=== PATIENT | male | born 1945 | race Caucasian/White ===

== ENCOUNTER → 2016-04-20 07:12 | Day surgery (SDC) | payer MEDICARE ==
[~2016-04-20 07:12] MED LIST: Acetaminophen TAB* 325 MG PO PRN; Buffered Lidocaine 1% SYR 3ML* 3 ML/SYR SYRINGE INTRADERM ONE; Buffered Lidocaine 1% SYR 3ML* 3 ML/SYR SYRINGE ONE; Cyclopentolate 1% OPTH.SOL* 2 ML BTL ONE; Flurbiprofen 0.03% OPTH.SOL* 2.5 ML BTL ONE; Lidocaine 1% MPF* 2 ML VIAL ONE; Lidocaine 2% EPI 1:200000 MPF* 20 ML VIAL ONE; Midazolam* 1 MG/ML 2 ML VIAL (2 MG) ONE; Neomycin/Polymy/Dex OPTH.SUSP* MAXITROL 0.1% 5 ML ONE; Phenylephrine 2.5% OPTH.SOL* 2 ML BTL ONE; Povidone Iodine 5% OPTH* 30 ML BTL ONE; Proparacaine 0.5% OPHTH.SOL* 15 ML BTL ONE; acetaZOLAMIDE TAB* 250 MG ONE
[2016-04-20 09:35] VITALS: BP 101/60
--- NOTE | 2016-04-20 23:13 | OP ---
DATE OF OPERATION: 04/20/16 - [facility] DATE OF : 49 SURGEON: Wade Iraheta MD PREOPERATIVE DIAGNOSIS: Cataract, right eye. POSTOPERATIVE DIAGNOSIS: Cataract, right eye. OPERATIVE PROCEDURE: Phacoemulsification, right eye with IOL. DESCRIPTION OF PROCEDURE: The patient was brought to the operating room after being given 1/2% Alcaine with epinephrine drops in the preoperative area. The eye was prepped and draped in the usual sterile fashion. Sterile drape and eyelid speculum were placed. Again, topical 1/2% Alcaine with epinephrine was given. A paracentesis incision was made at the 9 o'clock position with the No.75 blade. Clear cornea incision 2.2 x 2.2-mm was created at the 12 o'clock position starting at the anterior limbus using the 2.2-mm keratome. The anterior chamber was irrigated with 0.4 mL of 1% non-preservative intracameral lidocaine and filled with DisCoVisc. A capsulorrhexis was completed using the cystotome and the Utrata forceps. Hydrodissection was performed with balanced salt solution. The lens nucleus was removed with the Phacoemulsification handpiece without incident. Cortex was removed with the irrigation-aspiration handpiece. The capsular bag was re-inflated using DisCoVisc and an SN60WF 20.5 implant was inserted with the shooter. The irrigation-aspiration handpiece was used to remove all residual DisCoVisc. The eye was refilled with balanced salt solution and the wound checked and found to be watertight. Topical Maxitrol drops were given. [id number]/[facility] #: [id number] [facility]
== END | disposition home or self-care (01) ==
LOC: OREAST 07:12
PROVIDERS: ATTEND Specialist
DX: H25.811 Combined forms of age-related cataract, right eye (principal); H04.123 Dry eye syndrome of bilateral lacrimal glands; I10 Essential (primary) hypertension
CPT/HCPCS: A9270-GY; J2250; V2632

== ENCOUNTER → 2016-04-27 06:43 | Day surgery (SDC) | payer MEDICARE ==
[2016-04-27 08:36] VITALS: BP 125/65
--- NOTE | 2016-04-27 22:00 | OP ---
DATE OF OPERATION: 04/27/16 - [facility] DATE OF : 49 SURGEON: Wade Iraheta M.D. PREOPERATIVE DIAGNOSIS: Cataract left eye. POSTOPERATIVE DIAGNOSIS: Cataract left eye. OPERATIVE PROCEDURE: Phacoemulsification left eye with IOL. DESCRIPTION OF PROCEDURE: The patient was brought to the operating room after being given 1/2% Alcaine with epinephrine drops in the preoperative area. The eye was prepped and draped in the usual sterile fashion. Sterile drape and eyelid speculum were placed. Again, topical 1/2% Alcaine with epinephrine was given. A paracentesis incision was made at the 3 o'clock position with the No.75 blade. Clear cornea incision 2.2 x 2.2-mm was created at the 6 o'clock position starting at the anterior limbus using the 2.2-mm keratome. The anterior chamber was irrigated with 0.4 mL of 1% non-preservative intracameral lidocaine and filled with DisCoVisc. A capsulorrhexis was completed using the cystotome and the Utrata forceps. Hydrodissection was performed with balanced salt solution. The lens nucleus was removed with the Phacoemulsification handpiece without incident. Cortex was removed with the irrigation-aspiration handpiece. The capsular bag was re-inflated using DisCoVisc and an [id number] 21 implant was inserted with the shooter. The irrigation-aspiration handpiece was used to remove all residual DisCoVisc. The eye was refilled with balanced salt solution and the wound checked and found to be watertight. Topical Maxitrol drops were given. [id number]/[facility] #: [id number] [place]
== END | disposition home or self-care (01) ==
LOC: OREAST 06:43
PROVIDERS: ATTEND Specialist
DX: H25.812 Combined forms of age-related cataract, left eye (principal); H04.123 Dry eye syndrome of bilateral lacrimal glands; Z87.891 Personal history of nicotine dependence; I10 Essential (primary) hypertension
CPT/HCPCS: A9270-GY; J2250; V2632

== ENCOUNTER 2019-03-16 10:26 | Emergency (ER) | payer MEDICARE ==
--- OUTSIDE RECORDS SUMMARY | 2019-03-16 10:31 | XMS REPORT | Continuity of Care Document ---
:1945 External Reference #:[id number] Author Name Jose Antonio Younger PA Address [address] [place] [address] Care Team Providers Name Role Phone Abrahan Quigley MD - Care Team Information Safety Companion [phone] Cardiovascular Disease Problems Active Problems Provider Date Type 2 diabetes mellitus Jose Antonio Younger PA Onset: 12/03/2018 Essential hypertension Jose Antonio Younger PA Onset: 12/03/2018 Hypothyroidism Jose Antonio Younger PA Onset: 12/03/2018 Mixed hyperlipidemia Jade Bernabe MD Onset: 04/25/2013 Benign prostatic hypertrophy with outflow Jade Bernabe MD Onset: 2013 obstruction Obstructive sleep apnea syndrome Jose Antonio Younger PA Onset: 04/18/2018 Note: -- per Pulm 03/2018 Gastroesophageal reflux disease Jose Antonio Younger PA Onset: 05/11/2015 Diverticular disease of colon Jose Antonio Younger PA Onset: 11/30/2015 Ultrasound scan normal Jose Antonio Younger PA Onset: 04/05/2016 Note: AAA -- 03/2016 Hepatitis C screening Jose Antonio Younger PA Onset: 04/26/2016 Note: Neg -- 03/2016 Bone densimetry normal Jose Antonio Younger PA Onset: 12/12/2017 Note: 11/2017 ECG: ectopic beats - premature atrial contraction Jose Antonio Younger PA Onset: 01/2018 Note: 24hr Holter w/ frequent PACs -- 02/2018 Spinal stenosis in cervical region Jose Antonio Younger PA Onset: 11/21/2018 Note: C3 thru C7 -- per MRI 10/2018 Social History Type Date Description Comments Sex Unknown ETOH Use Occasionally consumes alcohol Tobacco Use Start: Unknown End: Patient is a former smoker remote 15 pack year. Unknown ~20-35yo. Smoking Status Reviewed: 02/28/19 Patient is a former smoker remote 15 pack year. ~20-35yo. Sun Exposure moderate amount of sun exposure Sun Exposure Does not use sunscreen Allergies, Adverse Reactions, Alerts Active Allergies Reaction Severity Comments Date Ceclor 11/15/2004 Medications Active Medications SIG Qnty Indications Ordering Date Provider Metformin HCL ER take 2 tablets 180tabs E11.9 [facility] 12/13/2018 500mg each morning MD Jayro Tablets ER 24HR Levothyroxine Sodium 1 by mouth every 90tabs E03.9 [facility] 2018 day on empty MD Jayro 50mcg Tablets stomach before bedtime Shingrix 1 injection as 1units Z00.01 [facility] 11/29/2018 50mcg/0.5ML directed MD Jayro Suspension Rec Spironolactone/Hydroc 1 by mouth every 90tabs R60.9 [facility] 09/27 hlorothiazide day for edema/htn MD Jayro 25-25mg Tablets I10 Fluticasone Propionate 1 sprays in each 48gm J30.9 [facility] 2018 nostril twice MD Jayro 50mcg/Act Suspension daily Omeprazole Take 1 Capsule 90caps K21.9 [facility] 11/29/[address] Daily MD Jayro Iron one by mouth day 30tabs [facility] 08/23/2016 325(65Fe) mg Tablets MD Jayro Simvastatin take 1 tablet 90tabs E78.2 [facility] 11/10/2014 20mg Tablets daily MD Jayro Tamsulosin HCL Take 1 Capsule 90caps N40.1 [facility] 12/16/2010 0.4mg Capsules Daily MD Jayro Multivitamins 1 PO qd 30tabs Azeem Parsons, 11/15/2004 Tablets Aspirin Enteric Coated 1 PO qd E78.2 Azeem Parsons, 11/15/2004 81mg MD Tablets History Medications Cheratussin ac 5-10 milliliters 300ml J15.9 [facility], 02/20/2019 - four times a day Kimberlee Dial MD 02/23/2019 100-10mg/5ML Solution as needed cough Azithromycin 1 by mouth every 3tabs J15.9 [facility], 02/20/2019 - 500mg day Kimberlee Dial MD 02/23/2019 Tablets Synjardy XR Hold 30tabs E11.9 [facility], 12/03/2018 - 10-1000mg Kimberlee Dial MD 12/20/2018 Tablets ER 24HR Naproxen 1 by mouth twice a 60tabs M54.12 [facility] 11/29/2018 - 500mg Tablets day as needed Kimberlee Dial MD 12/20/2018 Gabapentin take three po at 90caps M54.12 [facility] 09/27/2018 - 100mg Capsules bedtime Kimberlee Dial MD 12/20/2018 Oxycodone HCL 1 tab as needed up 45caps M54.12 [facility] 09/27/2018 - 5mg to 2 per day for Kimberlee Dial MD 12/20/2018 Capsules severe pain Cyclobenzaprine HCL 1/2 to 1 tab by 45tabs M54.12 [facility] 09/13/2018 - 10mg mouth nightly Kimberlee Dial MD 11/29/2018 Tablets needed muscle spasm Prednisone 2 by mouth every 10tabs M54.2 [facility] 09/13/2018 - 20mg Tablets morning Kimberlee Dial MD 09/23/2018 Naproxen 1 by mouth twice a 60tabs M54.12 [facility] 09/13/2018 - 500mg Tablets day for 1-2weeks Kimberlee Dial MD 11/29/2018 and then as needed [start after finish prednisone; no other NSAIDs OTC] Medications Administered in Office Medication SIG Qnty Indications Ordering Provider Date Depo Medrol 80 MG Jose Antonio Younger PA 10/26/2015 Injection Depo Medrol 40 MG Azeem Parsons MD 05/03/2002 Injection Immunizations CPT Code Status Date Vaccine Lot # [id number] Given 11/29/2018 Pneumococcal 23 Immunization Adult Or [id number] Immunosuppressed Patient 91363 Given 11/29/2018 Influenza Vac, Quadrivalent, Split, 0.5mL Dosage, [id number] Im Use 26095 Given 12/14/2017 Influenza Vac, Quadrivalent, Split, 0.5mL Dosage, [id number] Im Use 72344 Given 05/29/2017 Zoster (Zostavax) 00164 Given 11/29/2016 Tdap (Adacel) Ages 7 And Above Only [id number] 96033 Given 11/29/2016 Influenza Vac, Quadrivalent, Split, 0.5mL Dosage, [id number] Im Use 65487 Given 11/30/2015 Influenza Vac, Quadrivalent, Split, 0.5mL Dosage, [id number] Im Use 46904 Given 11/30/2015 Prevnar 13 Pneumococal Conjugate Vaccine [id number] Q2038 Given 01/05/2015 Fluzone Trivalent Immunization [id number] 23397 Given 01/05/2015 Influenza Vac, Quadrivalent, Split, 0.5mL Dosage, [id number] Im Use Q2038 Given 01/06/2014 Fluzone Trivalent Immunization [id number] 18313 Given 04/25/2013 Pneumococcal 23 Immunization Adult Or Immunosuppressed Patient 42921 Given 04/25/2013 Pneumococcal 23 Immunization Adult Or [id number] Immunosuppressed Patient Q2038 Given 01/15/2013 Fluzone Trivalent Immunization [id number] Q2038 Given 01/12/2012 Fluzone Trivalent Immunization [id number] Q2038 Given 01/20/2011 Fluzone Trivalent Immunization [id number] 17513 Given 01/04/2010 Afluria Or Fluvirin Flu Vac Intramuscular [id number] 96562 Given 04/27/2009 Influenza Virus Vaccine Pandemic Formulation - [id number] 49959 Given 04/27/2009 Administration Swine Flu Vaccine [id number] 21845 Given 02/19/2009 Afluria Or Fluvirin Flu Vac Intramuscular [id number] 28959 Given 03/10/2008 Afluria Or Fluvirin Flu Vac Intramuscular [id number] 11941 Given 01/09/2007 Afluria Or Fluvirin Flu Vac Intramuscular 24656 Given 01/09/2007 Afluria Or Fluvirin Flu Vac Intramuscular [id number] 52733 Given 12/16/2005 Afluria Or Fluvirin Flu Vac Intramuscular [id number] 36946 Given 01/12/2005 Afluria Or Fluvirin Flu Vac Intramuscular [id number] 61719 Given 12/24/2003 Afluria Or Fluvirin Flu Vac Intramuscular 08213 Given 12/25/2002 Afluria Or Fluvirin Flu Vac Intramuscular 61379 Given 01/22/2001 Afluria Or Fluvirin Flu Vac Intramuscular 08695 Given 02/07/2000 Influenza Virus Vaccine, Whole Virus, Intramuscular Or Jet Inj. 62565 Given Unknown Zoster (Zostavax) Vital Signs Date Vital Result Comment 02/28/2019 8:02am Weight 246.12 lb Heart Rate 87 /min BP Systolic 134 mmHg BP Diastolic 78 mmHg Height 71 inches 5'11" BMI (Body Mass Index) 34.3 kg/m2 02/20/2019 12:52pm Body Temperature 97.8 F Weight 247.00 lb Heart Rate 89 /min BP Systolic 129 mmHg BP Diastolic 70 mmHg Height 71 inches 5'11" BMI (Body Mass Index) 34.4 kg/m2 Results Test Acquired Date Facility Test Result H/L Range Note Comprehensive Met 02/21/2019 [facility] Sodium 142 mmol/L 135-146 1 [facility] Potassium 4.7 mmol/L 3.5-5.2 Chloride# 101 mmol/L 97-110 2 Carbon Dioxide 29 mmol/L 24-34 Calcium 9.3 mg/dL 8.5-10.5 3 Glucose 131 mg/dL High 70-105 BUN 17 mg/dL 6-26 Creatinine 1.0 mg/dL 0.5-1.4 Total Protein 6.3 g/dL 6.0-8.0 Albumin 4.2 g/dL 3.6-4.9 Globulin 2.1 g/dL 2.0-3.5 A/G Ratio 2.0 Ratio 1.0-2.2 Total Bilirubin 0.5 mg/dL 0.1-1.3 Alkaline Phosphatase 71 U/L 24-140 Alt 18 U/L 3-42 Ast 20 U/L 8-42 Anion Gap 12 mmol/L 5-15 4 Female Egfr 59 Low >60 5 Male Egfr 79 >60 6 Laboratory test finding 02/21/2019 [facility] Magnesium 1.8 mg/dL 1.5-2.7 Hemoglobin A1c 02/21/2019 [facility] Hemoglobin A1c 6.4 % High 4.1-5.9 Estimated Average Glucose Calc 137 mg/dL 71-140 Laboratory test 02/20/2019 Done In Doctors Office 1 Rapid Flu Test NEG finding (In House) Laboratory test 12/13/2018 [facility] SEE NOTE 7 finding [facility] Comprehensive Met 11/29/2018 [facility] Sodium 139 mmol/L 135-146 8 [facility] Potassium 4.5 mmol/L 3.5-5.2 Chloride# 101 mmol/L 97-110 9 Carbon Dioxide 30 mmol/L 24-34 Calcium 9.4 mg/dL 8.5-10.5 10 Glucose 132 mg/dL High 70-105 BUN 13 mg/dL 6-26 Creatinine 1.0 mg/dL 0.5-1.4 Total Protein 6.1 g/dL 6.0-8.0 Albumin 4.0 g/dL 3.6-4.9 Globulin 2.1 g/dL 2.0-3.5 A/G Ratio 1.9 Ratio 1.0-2.2 Total Bilirubin 0.5 mg/dL 0.1-1.3 Alkaline Phosphatase 64 U/L 24-140 Alt 23 U/L 3-42 Ast 26 U/L 8-42 Anion Gap 8 mmol/L 5-15 11 Female Egfr 54 Low >60 12 Male Egfr 72 >60 13 CBC with Auto Diff-[facility] 11/29/2018 [facility] WBC 7.0 K/uL 4.1-11.0 RBC 4.63 M/uL 4.60-6.10 Hemoglobin 15.5 gm/dL 13.5-18.0 Hematocrit 44.9 % 41.0-53.0 MCV 97.0 fL 80.0-97.0 MCH 33.5 pg High 27.0-32.0 MCHC 34.5 g/dL 32.0-36.0 RDW 13.3 % 11.5-14.5 PLT Count 207 K/ul 140-400 MPV 8.2 FL 7.1-10.7 Neutrophil 66.3 % 35.0-75.0 Lymphocyte 18.5 % 16.0-52.0 Monocyte 9.7 % 2.0-10.0 Eosinophil 4.7 % 0.0-5.0 Basophil 0.8 % 0.0-4.0 Abs Neutrophils 4.7 K/uL 2.1-8.0 Abs Lymphocytes 1.3 K/uL 0.8-5.5 Abs Monocytes 0.7 K/uL 0.1-1.0 Abs Eosinophils 0.3 K/uL 0.0-0.5 Abs Basophils 0.1 K/uL 0.0-0.3 Hemoglobin A1c 11/29/2018 [facility] Hemoglobin A1c 7.4 % High 4.1-5.9 Estimated Average Glucose Calc 166 mg/dL High 71-140 Lipid 11/29/2018 [facility] Cholesterol 133 mg/dL 50-199 Triglycerides 255 mg/dL High 30-200 HDL 31 mg/dL 29-71 14 Chol/ HDL Ratio 4.4 ratio 4.0-6.7 VLDL 51 mg/dL High 2-29 LDL (Calc) 52 mg/dL 20-99 15 Laboratory test finding 11/29/2018 [facility] Magnesium 1.9 mg/dL 1.5-2.7 PSA 0.540 ng/mL 0.000-4.000 16 TSH 3.48 uIU/mL 0.35-4.94 1 Updated reference range on new analyzer 2 Updated reference range on new analyzer 3 Updated reference range 07-18-2018 4 Updated Reference Range 5 Concerning GFR Guidelines for Americans: Normal function or mild renal disease, if clinically at risk: >/= 60 mL/min Moderately decreased: 30-59 Severely decreased: 15-29 Renal failure: <15 There is reduced accuracy above 60ml/min/1.73 m squared, but the numeric value may be clinically useful in the near 60 range 6 Concerning GFR Guidelines: Normal function or mild renal disease, if clinically at risk: >/= 60 mL/min Moderately decreased: 30-59 Severely decreased: 15-29 Renal failure: <15 There is reduced accuracy above 60ml/min/1.73 m squared, but the numeric value may be clinically useful in the near 60 range Glomerular Filtration Rate (GFR) is estimated based on the CKD-EPI equation, which assumes a steady state for creatinine as recommended by the National Kidney Disease Education Program in conjunction with the National Institutes of Health and the National Kidney Foundation. Clinical conditions in which it may be necessary to measure GFR by using clearance methods include extremes of age and body size, severe malnutrition or obesity, diseases of skeletal muscle, paraplegia or quadriplegia, vegetarian diet, rapidly changing kidney function, and calculation of the dose of potentially toxic drugs that are excreted by the kidneys. 7 Laboratory [place] [address] Surgical Pathology Report Specimen(s) Received A: Left arm lesion Clinical Diagnosis and History ICD 10 - D48.5 Left arm lesion - punch. Diagnosis SKIN, LEFT ARM LESION, PUNCH BIOPSY - INFLAMED HYPERTROPHIC SEBORRHEIC KERATOSIS. Gross Description Specimen received in formalin labeled "left arm lesion" is a 0.8 cm circular granular, slightly nodular skin punch excised to a maximum depth of 0.8 cm. The specimen is inked, bisected transversely and is entirely submitted for microscopic examination. (1 block) juliana f/[facility] Technical component processed at [facility], Histopathology, [address] [place] [address], [facility]. Diagnosis and reporting performed at [facility], [address] [place] [address]. Reported: 12/18/2018 19:04 Electronically Signed Out By Abdi Reilly MD [facility] This report may include immunohistochemical or in-situ hybridization results. Testing was developed and the performance characteristics determined by [facility] [employer] as required by CLIA '88. The FDA has determined that approval for specific use is not necessary for clinical use. The quality of all stains including positive and negative controls for all immunohistochemical and/or special stains were reviewed and considered appropriate ICD9 Codes L82.0 CPT4 codes A: 15937R Unless otherwise specified, testing performed by [facility], [place] [address] 8 Updated reference range on new analyzer 9 Updated reference range on new analyzer 10 Updated reference range 07-18-2018 11 Updated Reference Range 12 Concerning GFR Guidelines for Americans: Normal function or mild renal disease, if clinically at risk: >/= 60 mL/min Moderately decreased: 30-59 Severely decreased: 15-29 Renal failure: <15 There is reduced accuracy above 60ml/min/1.73 m squared, but the numeric value may be clinically useful in the near 60 range 13 Concerning GFR Guidelines: Normal function or mild renal disease, if clinically at risk: >/= 60 mL/min Moderately decreased: 30-59 Severely decreased: 15-29 Renal failure: <15 There is reduced accuracy above 60ml/min/1.73 m squared, but the numeric value may be clinically useful in the near 60 range Glomerular Filtration Rate (GFR) is estimated based on the CKD-EPI equation, which assumes a steady state for creatinine as recommended by the National Kidney Disease Education Program in conjunction with the National Institutes of Health and the National Kidney Foundation. Clinical conditions in which it may be necessary to measure GFR by using clearance methods include extremes of age and body size, severe malnutrition or obesity, diseases of skeletal muscle, paraplegia or quadriplegia, vegetarian diet, rapidly changing kidney function, and calculation of the dose of potentially toxic drugs that are excreted by the kidneys. 14 Per NCEP ATP III Guidelines: Results lower than 40 mg/dL are suggestive of increased risk for coronary artery disease. Results > or = to 60 mg/dL are considered a negative risk factor. 15 Per NCEP ATP III Guidelines: Normal Population <130 Patients with medical conditions: CHD/DM Optimal: <100 Borderline high: 130-159 High: 160-189 Very high: >189 16 Beginning 05/15/06 PSA values assayed at [facility] uses chemiluminescence methodology manufactured by [employer] for use on the DXI analyzer. Values obtained with different assay methods or kits can not be used interchangeably. Serum PSA measurement is not an absolute test for malignancy. The PSA value should be used in conjunction with information available from clinical evaluation and other diagnostic procedures. Procedures Date Code Description Status 12/13/2018 53536 Excise Benign Lesion .6-1CM Trunk/Arm/Leg Completed 12/13/2018 99443 Remove Skin Tags Up To 15 Completed 12/12/2017 [id number] Bone Mineral Density Test Completed 11/20/2012 [id number] Colonoscopy Completed 03/20/2003 [id number] Colonoscopy Completed Medical Devices Description No Information Available Encounters Type Date Location Provider Dx Diagnosis Office Visit 02/20/2019 1:00p Jose Antonio Santa PA J15.9 Unspecified bacterial pneumonia E66.9 Obesity, unspecified Z68.34 Body mass index (BMI) 34.0-34.9, adult J02.9 Acute pharyngitis, unspecified Office Visit 12/24/2018 1:00p Jose Antonio Santa PA N43.3 Hydrocele, unspecified E66.9 Obesity, unspecified Z68.34 Body mass index (BMI) 34.0-34.9, adult Office Visit 12/20/2018 8:00a Jose Antonio Santa PA E11.9 Type 2 diabetes mellitus without complications I10 Essential (primary) hypertension E78.2 Mixed hyperlipidemia N40.1 Benign prostatic hyperplasia with lower urinary tract symp K21.9 Gastro-esophageal reflux disease without esophagitis G47.33 Obstructive sleep apnea (adult) (pediatric) J30.9 Allergic rhinitis, unspecified M15.0 Primary generalized (osteo)arthritis R00.2 Palpitations L82.0 Inflamed seborrheic keratosis M54.2 Cervicalgia M54.12 Radiculopathy, cervical region E03.9 Hypothyroidism, unspecified Z68.34 Body mass index (BMI) 34.0-34.9, adult Office Visit 11/29/2018 8:00a Jose Antonio Santa PA Z00.01 Encounter for general adult medical exam w abnormal findings M54.2 Cervicalgia M54.12 Radiculopathy, cervical region R73.01 Impaired fasting glucose I10 Essential (primary) hypertension E78.2 Mixed hyperlipidemia K21.9 Gastro-esophageal reflux disease without esophagitis N40.1 Benign prostatic hyperplasia with lower urinary tract symp J30.9 Allergic rhinitis, unspecified G47.33 Obstructive sleep apnea (adult) (pediatric) M15.0 Primary generalized (osteo)arthritis R00.2 Palpitations Z13.89 Encounter for screening for other disorder Z12.11 Encounter for screening for malignant neoplasm of colon E66.9 Obesity, unspecified Z68.34 Body mass index (BMI) 34.0-34.9, adult Office Visit 09/27/2018 8:40a Jose Antonio Santa PA M54.12 Radiculopathy, cervical region M54.2 Cervicalgia E66.9 Obesity, unspecified I10 Essential (primary) hypertension R60.9 Edema, unspecified Z68.35 Body mass index (BMI) 35.0-35.9, adult Office Visit 09/13/2018 10:00a Jose Antonio Santa PA M54.2 Cervicalgia E66.9 Obesity, unspecified Z68.35 Body mass index (BMI) 35.0-35.9, adult Assessments Date Code Description Provider 02/28/2019 E11.9 Type 2 diabetes mellitus without Jose Antonio Younger PA complications 02/28/2019 I10 Essential (primary) hypertension Jose Antonio Younger PA 02/28/2019 E78.2 Mixed hyperlipidemia Jose Antonio Younger PA 02/28/2019 G47.33 Obstructive sleep apnea (adult) (pediatric) Jose Antonio Younger PA 02/28/2019 K21.9 Gastro-esophageal reflux disease without BiterJose Antonio PA esophagitis 02/28/2019 N40.1 Benign prostatic hyperplasia with lower BiteJose Antonio diaz PA urinary tract symptoms 02/28/2019 E03.9 Hypothyroidism, unspecified BiterJose Antonio PA 02/28/2019 N43.3 Hydrocele, unspecified BiteJose Antonio diaz PA 02/28/2019 J30.9 Allergic rhinitis, unspecified BiteJose Antonio diaz PA 02/28/2019 M15.0 Primary generalized (osteo)arthritis Jose Antonio Younger PA 02/28/2019 M54.12 Radiculopathy, cervical region BiterJose Antonio PA 02/28/2019 M54.2 Cervicalgia Jose Antonio Younger PA 02/28/2019 E66.9 Obesity, unspecified Jose Antonio Younger PA 02/28/2019 Z68.34 Body mass index (BMI) 34.0-34.9, adult Jose Antonio Younger PA 02/21/2019 E11.9 Type 2 diabetes mellitus without Kimberlee Weeks MD complications 02/21/2019 E11.9 Type 2 diabetes mellitus without Nurses Schedule Radhika complications 02/21/2019 I10 Essential (primary) hypertension Kimberlee Weeks MD 02/21/2019 I10 Essential (primary) hypertension Nurses Schedule Radhika 02/21/2019 E78.2 Mixed hyperlipidemia Kimberlee Weeks MD 02/21/2019 E78.2 Mixed hyperlipidemia Nurses Schedule Radhika 02/21/2019 E11.9 Type 2 diabetes mellitus without [facility] complications 02/21/2019 I10 Essential (primary) hypertension [facility] 02/21/2019 E78.2 Mixed hyperlipidemia [facility] 02/20/2019 J15.9 Unspecified bacterial pneumonia Jose Antonio Younger PA 02/20/2019 E66.9 Obesity, unspecified BiteJose Antonio diaz PA 02/20/2019 Z68.34 Body mass index (BMI) 34.0-34.9, adult Jose Antonio Younger PA 02/20/2019 J02.9 Acute pharyngitis, unspecified Jose Antonio Younger PA 12/24/2018 N43.3 Hydrocele, unspecified Jose Antonio Younger PA 12/24/2018 E66.9 Obesity, unspecified BiterJose Antonio PA 12/24/2018 Z68.34 Body mass index (BMI) 34.0-34.9, adult BiterJose Antonio PA 12/20/2018 E11.9 Type 2 diabetes mellitus without Jose Atnonio Younger PA complications 12/20/2018 I10 Essential (primary) hypertension BiterJose Antonio PA 12/20/2018 E78.2 Mixed hyperlipidemia WilmarJose Antonio PA 12/20/2018 N40.1 Benign prostatic hyperplasia with lower Jose Antonio Younger PA urinary tract symptoms 12/20/2018 K21.9 Gastro-esophageal reflux disease without WilmarJose Antonio PA esophagitis 12/20/2018 G47.33 Obstructive sleep apnea (adult) (pediatric) WilmarJose Antonio PA 12/20/2018 J30.9 Allergic rhinitis, unspecified Jose Antonio Younger PA 12/20/2018 M15.0 Primary generalized (osteo)arthritis Jose Antonio Younger PA 12/20/2018 R00.2 Palpitations Jose Antonio Younger PA 12/20/2018 L82.0 Inflamed seborrheic keratosis Jose Antonio Younger PA 12/20/2018 M54.2 Cervicalgia WilmarJose Antonio PA 12/20/2018 M54.12 Radiculopathy, cervical region BiteJose Antonio diaz PA 12/20/2018 E03.9 Hypothyroidism, unspecified BiterJose Antonio PA 12/20/2018 Z68.34 Body mass index (BMI) 34.0-34.9, adult BiteJose Antonio diaz PA 12/13/2018 D48.5 Neoplasm of uncertain behavior of skin Jose Antonio Younger PA 12/13/2018 L82.0 [facility] 12/13/2018 L91.8 Other hypertrophic disorders of the skin Jose Antonio Younger PA 12/13/2018 L82.0 Inflamed seborrheic keratosis Jose Antonio Younger PA 12/13/2018 D48.5 [facility] 11/29/2018 Z00.01 Encounter for general adult medical Jose Antonio Younger PA examination with abnormal findings 11/29/2018 R73.01 Impaired fasting glucose [facility] 11/29/2018 M54.2 Cervicalgia Jose Antonio Younger PA 11/29/2018 M54.12 Radiculopathy, cervical region BiteJose Antonio diaz PA 11/29/2018 E78.2 [facility] 11/29/2018 R73.01 Impaired fasting glucose BiterJose Antonio PA 11/29/2018 N40.1 Benign prostatic hyperplasia with lower [facility] urinary tract symptoms 11/29/2018 I10 Essential (primary) hypertension Jose Antonio Younger PA 11/29/2018 E78.2 Mixed hyperlipidemia Jose Antonio Younger PA 11/29/2018 K21.9 Gastro-esophageal reflux disease without BiterJose Antonio PA esophagitis 11/29/2018 N40.1 Benign prostatic hyperplasia with lower BiteJose Antonio diaz PA urinary tract sympto 11/29/2018 J30.9 Allergic rhinitis, unspecified Jose Antonio Younger PA 11/29/2018 G47.33 Obstructive sleep apnea (adult) (pediatric) Jose Antonio Younger PA 11/29/2018 M15.0 Primary generalized (osteo)arthritis Jose Antonio Younger PA 11/29/2018 R00.2 Palpitations Jose Antonio Younger PA 11/29/2018 Z13.89 Encounter for screening for other disorder Jose Antonio Younger PA 11/29/2018 Z12.11 Encounter for screening for malignant Jose Antonio Younger PA neoplasm of colon 11/29/2018 E66.9 Obesity, unspecified Jose Antonio Younger PA 11/29/2018 Z68.34 Body mass index (BMI) 34.0-34.9, adult Jose Antonio Younger PA 11/29/2018 Z00.01 Encounter for general adult medical [facility] examination with abnormal findings 09/27/2018 M54.12 Radiculopathy, cervical region BiteJose Antonio diaz PA 09/27/2018 M54.2 Cervicalgia Jose Antonio Younger PA 09/27/2018 E66.9 Obesity, unspecified BiteJose Antonio diaz PA 09/27/2018 I10 Essential (primary) hypertension Jose Antonio Yuonger PA 09/27/2018 R60.9 Edema, unspecified Jose Antonio Younger PA 09/27/2018 Z68.35 Body mass index (BMI) 35.0-35.9, adult Jose Antonio Younger PA 09/13/2018 M54.2 Cervicalgia Jose Antonio Younger PA 09/13/2018 E66.9 Obesity, unspecified BiteJose Antonio diaz PA 09/13/2018 Z68.35 Body mass index (BMI) 35.0-35.9, adult Jose Antonio Younger PA Plan of Treatment 02/28/2019 - Jose Antonio Younger, PAE11.9 Type 2 diabetes mellitus without complicationsNew Labs:Comprehensive Met Panel-[facility], Scheduled: Hemoglobin A1c, Scheduled: 06/30/19Comments:Tried the Synjardy but did not tolerate well w/ GI issues. tried increasing the Metformin to 2 in AM. A1C= 6.4 02/21/2019. tolerating the Metformin bid.Follow up:f/u 3months.I10 Essential (primary) hypertensionComments:checking regularly. numbers usually 120's/60-70'sE78.2 Mixed hyperlipidemiaComments:Lipids at good levels. HDL slightly low. stable 11/20180587L85.33 Obstructive sleep apnea (adult) (pediatric) Comments:Saw pulmonology -- +TACO moderate/mild. recommended CPAP but pt cannot tolerate. does not want to get mouth guard.K21.9 Gastro-esophageal reflux disease without esophagitisComments:stable. reduced to 20mg. doing well.N40.1 Benign prostatic hyperplasia with lower urinary tract symptomsComments:Stable on meds. up 0 to 1 time nocturia.E03.9 Hypothyroidism, unspecifiedNew Labs:TSH, Scheduled: 06/30/19Free T4, Scheduled: 06/30/19Comments:will recheck levels in a 3months.N43.3 Hydrocele, unspecifiedComments:+ hydrocele on u/s R>L. refer to urology.Referral:Blake Mcconnell,J30.9 Allergic rhinitis, unspecifiedComments:will treat with flonase.M15.0 Primary generalized (osteo) arthritisComments:seeing Chiro. improving pain with exercises and gentle vgfseeacjD00.12 Radiculopathy, cervical regionComments:continued radicular pain w/o improvement with steroid burst, muscle relaxers, and NSAIDs. still notable to sleep and reduced mvt. + tingling and pain in the C5-C6 distributions L arm. Saw Neurosurg-- recommended PT. doing better with the PT. using gabapentin 3 q pm. sporadic oxycodone at night. UPDATE 12/20:pain doing great. no complaints currently.M54.2 CervicalgiaComments:see aywhvM60.9 Obesity , rkwzxbfjojrM08.34 Body mass index (BMI) 34.0-34.9, adult Functional Status Description No Information Available Mental Status Description No Information Available Referrals Refer to Dr Reason for Referral Status Appt Date Blake Mcconnell [address] [place] [address] [phone] Benjamin Meade MD Severe Cervical Foraminal stenosis multiple Scheduled levels R>L /-PER JADE PT IS SCHEDULED AND AWARE-[address] [place] [address] [phone]
--- OUTSIDE RECORDS SUMMARY | 2019-03-16 10:31 | XMS REPORT | Continuity of Care Document ---
:1945 External Reference #:[id number] Author Name Jose Antonio Younger PA Address [address] [place] [address] Care Team Providers Name Role Phone Abrahan Quigley MD - Care Team Information Skull Grinder [phone] Cardiovascular Disease Problems Active Problems Provider Date [...] pack year. Unknown ~20-35yo. Smoking Status Reviewed: 02/20/19 Patient is a former smoker remote 15 pack year. ~20-35yo. Sun Exposure moderate amount of sun exposure Sun Exposure Does not use sunscreen Allergies, Adverse Reactions, Alerts Active Allergies Reaction Severity Comments Date Ceclor 11/15/2004 Medications Active Medications SIG Qnty Indications Ordering Date Provider Durga ac 5-10 milliliters 300ml J15.9 [facility], 02/20/2019 four times a day Kimberlee Dial MD 100-10mg/5ML Solution as needed cough Azithromycin 1 by mouth every 3tabs J15.9 [facility], 02/20/2019 500mg day Kimberlee Dial MD Tablets Metformin HCL ER take 2 tablets 180tabs E11.9 [facility], 12/13/2018 500mg each morning Kimberlee Dial MD Tablets ER 24HR Levothyroxine Sodium 1 by mouth every 90tabs E03.9 [facility], 12/03/2018 day on empty Kimberlee Dial MD 50mcg Tablets stomach before bedtime Shingrix 1 injection as 1units Z00.01 [facility], 11/29/2018 50mcg/0.5ML directed Kimberlee Dial MD Suspension Rec Spironolactone/Hydroc 1 by mouth every 90tabs R60.9 [facility], 09/27/2018 hlorothiazide day for edema/htn Kimberlee Dial MD 25-25mg Tablets I10 Fluticasone Propionate 1 sprays in each 48gm J30.9 [facility] 2018 nostril twice MD Jayro 50mcg/Act Suspension daily Omeprazole Take 1 Capsule 90caps K21.9 [facility] 11/29/[address] Elise Dial MD Iron one by mouth day 30tabs [facility] 08/23/2016 325(65Fe) mg Tablets MD Jayro Simvastatin take 1 tablet 90tabs E78.2 [facility] 11/10/2014 20mg Tablets daily MD Jayro Tamsulosin HCL Take 1 Capsule 90caps N40.1 [facility] 12/16/2010 0.4mg Capsules Daily MD Jayro Aspirin Enteric Coated 1 PO qd E78.2 Azeem Parsons, 11/15/2004 81mg MD Tablets Multivitamins 1 PO qd 30tabs Azeem Parsons, 11/15/2004 Tablets History Medications Synjardy XR Hold 30tabs E11.9 Kimberlee Weeks 12/03/2018 - 10-1000mg MD Jayro 12/20/2018 Tablets ER 24HR Naproxen 1 by mouth 60tabs M54.12 Kimberlee Weeks 11/29/2018 - 500mg Tablets twice a day as MMD 12/20/2018 needed Gabapentin take three po 90caps M54.12 Kimberlee Weeks 09/27/2018 - 100mg Capsules at bedtime MD Jayro 12/20/2018 Oxycodone HCL 1 tab as needed 45caps M54.12 Kimberlee Weeks 09/27/2018 - 5mg Capsules up to 2 per day MD Jayro 12/20/2018 for severe pain Cyclobenzaprine HCL 1/2 to 1 tab by 45tabs M54.12 Kimberlee Weesk 2018 - 10mg mouth nightly MD Jayro 11/29/2018 Tablets needed muscle spasm Prednisone 2 by mouth 10tabs M54.2 Kimberlee Weeks 09/13/2018 - 20mg Tablets every morning MD Jayro 09/23/2018 Naproxen 1 by mouth 60tabs M54.12 Kimberlee Weeks 09/13/2018 - 500mg Tablets twice a day for MD Jayro 11/29/2018 1-2weeks and then as needed [start after finish prednisone; no other NSAIDs OTC] Medications Administered in Office Medication SIG Qnty Indications Ordering Provider Date Depo Medrol 80 MG Jose Antonio Younger PA 10/26/2015 Injection Depo Medrol 40 MG Azeem Parsons MD 05/03/2002 Injection Immunizations CPT Code Status Date Vaccine Lot # [id number] Given 11/29/2018 Pneumococcal 23 Immunization Adult Or [id number] Immunosuppressed Patient 05952 Given 11/29/2018 Influenza Vac, Quadrivalent, Split, 0.5mL Dosage, [id number] Im Use 04865 Given 12/14/2017 Influenza Vac, Quadrivalent, Split, 0.5mL Dosage, [id number] Im Use 24608 Given 05/29/2017 Zoster (Zostavax) 09566 Given 11/29/2016 Tdap (Adacel) Ages 7 And Above Only [id number] 51012 Given 11/29/2016 Influenza Vac, Quadrivalent, Split, 0.5mL Dosage, [id number] Im Use 83256 Given 11/30/2015 Influenza Vac, Quadrivalent, Split, 0.5mL Dosage, [id number] Im Use 87740 Given 11/30/2015 Prevnar 13 Pneumococal Conjugate Vaccine [id number] Q2038 Given 01/05/2015 Fluzone Trivalent Immunization [id number] 11903 Given 01/05/2015 Influenza Vac, Quadrivalent, Split, 0.5mL Dosage, [id number] Im Use Q2038 Given 01/06/2014 Fluzone Trivalent Immunization [id number] 21547 Given 04/25/2013 Pneumococcal 23 Immunization Adult Or Immunosuppressed Patient 08698 Given 04/25/2013 Pneumococcal 23 Immunization Adult Or [id number] Immunosuppressed Patient Q2038 Given 01/15/2013 Fluzone Trivalent Immunization [id number] Q2038 Given 01/12/2012 Fluzone Trivalent Immunization [id number] Q2038 Given 01/20/2011 Fluzone Trivalent Immunization [id number] 86614 Given 01/04/2010 Afluria Or Fluvirin Flu Vac Intramuscular [id number] 01890 Given 04/27/2009 Influenza Virus Vaccine Pandemic Formulation - [id number] 78825 Given 04/27/2009 Administration Swine Flu Vaccine [id number] 13317 Given 02/19/2009 Afluria Or Fluvirin Flu Vac Intramuscular [id number] 11352 Given 03/10/2008 Afluria Or Fluvirin Flu Vac Intramuscular [id number] 11452 Given 01/09/2007 Afluria Or Fluvirin Flu Vac Intramuscular 57749 Given 01/09/2007 Afluria Or Fluvirin Flu Vac Intramuscular [id number] 66641 Given 12/16/2005 Afluria Or Fluvirin Flu Vac Intramuscular [id number] 61038 Given 01/12/2005 Afluria Or Fluvirin Flu Vac Intramuscular [id number] 16936 Given 12/24/2003 Afluria Or Fluvirin Flu Vac Intramuscular 63119 Given 12/25/2002 Afluria Or Fluvirin Flu Vac Intramuscular 36120 Given 01/22/2001 Afluria Or Fluvirin Flu Vac Intramuscular 66797 Given 02/07/2000 Influenza Virus Vaccine, Whole Virus, Intramuscular Or Jet Inj. 16955 Given Unknown Zoster (Zostavax) Vital Signs Date Vital Result Comment 02/20/2019 12:52pm Body Temperature 97.8 F Weight 247.00 lb Heart Rate 89 /min BP Systolic 129 mmHg BP Diastolic 70 mmHg Height 71 inches 5'11" BMI (Body Mass Index) 34.4 kg/m2 12/24/2018 12:32pm Weight 247.50 lb Heart Rate 85 /min BP Systolic 130 mmHg BP Diastolic 81 mmHg Height 71 inches 5'11" BMI (Body Mass Index) 34.5 kg/m2 Results Test Acquired Date Facility Test Result H/L Range Note Laboratory test 02/20/2019 Done In Doctors Office 1 Rapid Flu NEG finding Test (In House) Laboratory test 12/13/2018 [facility] SEE NOTE 1 finding [facility] Comprehensive Met 11/29/2018 [facility] Sodium 139 mmol/L 135-146 2 Panel-[facility] Potassium 4.5 mmol/L 3.5-5.2 Chloride# 101 mmol/L 97-110 3 Carbon Dioxide 30 mmol/L 24-34 Calcium 9.4 mg/dL 8.5-10.5 4 Glucose 132 mg/dL High 70-105 BUN 13 mg/dL 6-26 Creatinine 1.0 mg/dL 0.5-1.4 Total Protein 6.1 g/dL 6.0-8.0 Albumin 4.0 g/dL 3.6-4.9 Globulin 2.1 g/dL 2.0-3.5 A/G Ratio 1.9 Ratio 1.0-2.2 Total Bilirubin 0.5 mg/dL 0.1-1.3 Alkaline Phosphatase 64 U/L 24-140 Alt 23 U/L 3-42 Ast 26 U/L 8-42 Anion Gap 8 mmol/L 5-15 5 Female Egfr 54 Low >60 6 Male Egfr 72 >60 7 CBC with Auto Diff-[facility] 11/29/2018 [facility] WBC 7.0 K/uL 4.1-11.0 RBC 4.63 M/uL [...] Basophils 0.1 K/uL 0.0-0.3 Hemoglobin A1c 11/29/2018 [facility] Hemoglobin A1c 7.4 % High 4.1-5.9 Estimated Average Glucose Calc 166 mg/dL High 71-140 Lipid 11/29/2018 [facility] Cholesterol 133 mg/dL 50-199 Triglycerides 255 mg/dL High 30-200 HDL 31 mg/dL 29-71 8 Chol/ HDL Ratio 4.4 ratio 4.0-6.7 VLDL 51 mg/dL High 2-29 LDL (Calc) 52 mg/dL 20-99 9 [facility] 1.9 mg/dL 1.5-2.7 PSA 0.540 ng/mL 0.000-4.000 10 TSH 3.48 uIU/mL 0.35-4.94 1 Laboratory [place] [address] Surgical Pathology Report Specimen(s) Received A: Left [...] submitted for microscopic examination. (1 block) [facility] Technical component processed at [facility], Histopathology, [address] [place] [address], [address]. Diagnosis and reporting performed at [facility], [address] [place] [address]. Reported: 12/18/2018 19:04 Electronically Signed Out By Abdi Reilly MD [facility] This report may include immunohistochemical or in-situ hybridization results. Testing was developed and the performance characteristics determined by [facility] as required by CLIA '88. The FDA has determined that approval for specific use is not necessary for clinical use. The quality of all stains including positive and negative controls for all immunohistochemical and/or special stains were reviewed and considered appropriate ICD9 Codes L82.0 CPT4 codes A: 87395N Unless otherwise specified, testing performed by [facility], [address] [address] 2 Updated reference range on new analyzer 3 Updated reference range on new analyzer 4 Updated reference range 07-18-2018 5 Updated Reference Range 6 Concerning GFR Guidelines for Americans: Normal function or mild renal disease, if clinically at risk: >/= 60 mL/min Moderately decreased: 30-59 Severely decreased: 15-29 Renal failure: <15 There is reduced accuracy above 60ml/min/1.73 m squared, but the numeric value may be clinically useful in the near 60 range 7 Concerning GFR Guidelines: Normal function or mild [...] drugs that are excreted by the kidneys. 8 Per NCEP ATP III Guidelines: Results lower than 40 mg/dL are suggestive of increased risk for coronary artery disease. Results > or = to 60 mg/dL are considered a negative risk factor. 9 Per NCEP ATP III Guidelines: Normal Population <130 Patients with medical conditions: CHD/DM Optimal: <100 Borderline high: 130-159 High: 160-189 Very high: >189 10 Beginning 05/15/06 PSA values assayed at [employer] uses chemiluminescence methodology manufactured by [employer] for use on the DXI analyzer. Values obtained with different assay methods or kits can not be used interchangeably. Serum PSA measurement is not an absolute test for malignancy. The PSA value should be used in conjunction with information available from clinical evaluation and other diagnostic procedures. Procedures Date Code Description Status 12/13/2018 42969 Excise Benign Lesion .6-1CM Trunk/Arm/Leg Completed 12/13/2018 10300 Remove Skin Tags Up To 15 Completed 12/12/2017 208752027 Bone Mineral Density Test Completed 11/20/2012 63204365 Colonoscopy Completed 03/20/2003 79018391 Colonoscopy Completed Medical Devices Description No Information Available Encounters Type Date Location Provider Dx Diagnosis Office Visit 12/24/2018 1:00p Jose Antonio Santa [...] 35.0-35.9, adult Assessments Date Code Description Provider 02/20/2019 J15.9 Unspecified bacterial pneumonia Jose Antonio Younger PA 02/20/2019 E66.9 Obesity, unspecified Jose Antonio Younger PA 02/20/2019 Z68.34 Body mass index (BMI) 34.0-34.9, adult Jose Antonio Younger PA 02/20/2019 J02.9 Acute pharyngitis, unspecified Jose Antonio Younger PA 12/24/2018 N43.3 Hydrocele, unspecified Jose Antonio Younger PA 12/24/2018 E66.9 Obesity, unspecified Jose Antonio Younger PA 12/24/2018 Z68.34 Body mass index (BMI) 34.0-34.9, adult Jose Antonio Younger PA 12/20/2018 E11.9 Type 2 diabetes mellitus without complications Jose Antonio Younger PA 12/20/2018 I10 Essential (primary) hypertension Jose Antonio Younger PA 12/20/2018 E78.2 Mixed hyperlipidemia Jose Antonio Younger PA 12/20/2018 N40.1 Benign prostatic hyperplasia with lower urinary Jose Antonio Younger PA tract symptoms 12/20/2018 K21.9 Gastro-esophageal reflux disease without BiteJose Antonio diaz PA esophagitis 12/20/2018 G47.33 Obstructive sleep apnea (adult) (pediatric) Jose Antonio Younger PA 12/20/2018 J30.9 Allergic rhinitis, unspecified Jose Antonio Younger PA 12/20/2018 M15.0 Primary generalized (osteo)arthritis Jose Antonio Younger PA 12/20/2018 R00.2 Palpitations Jose Antonio Younger PA 12/20/2018 L82.0 Inflamed seborrheic keratosis Jose Antonio Younger PA 12/20/2018 M54.2 Cervicalgia Jose Atnonio Younger PA 12/20/2018 M54.12 Radiculopathy, cervical region Jose Antonio Younger PA 12/20/2018 E03.9 Hypothyroidism, unspecified Jose Antonio Younger PA 12/20/2018 Z68.34 Body mass index (BMI) 34.0-34.9, adult Jose Antonio Younger PA 12/13/2018 D48.5 Neoplasm of uncertain behavior of skin Jose Antonio Younger PA 12/13/2018 L82.0 Inflamed seborrheic keratosis [facility] 12/13/2018 L91.8 Other hypertrophic disorders of the skin Jose Antonio Younger PA 12/13/2018 L82.0 Inflamed seborrheic keratosis Jose Antonio Younger PA 12/13/2018 D48.5 Neoplasm of uncertain behavior of skin [facility] 11/29/2018 Z00.01 Encounter for general adult medical examination Jose Antonio Younger PA with abnormal findings 11/29/2018 R73.01 Impaired fasting glucose [facility] 11/29/2018 M54.2 Cervicalgia Jose Antonio Younger PA 11/29/2018 M54.12 Radiculopathy, cervical region Jose Antonio Younger PA 11/29/2018 E78.2 Mixed hyperlipidemia [facility] 11/29/2018 R73.01 Impaired fasting glucose Jose Antonio Younger PA 11/29/2018 N40.1 Benign prostatic hyperplasia with lower urinary [facility] tract symptoms 11/29/2018 I10 Essential (primary) hypertension Jose Antonio Younger PA 11/29/2018 E78.2 Mixed hyperlipidemia Jose Antonio Younger PA 11/29/2018 K21.9 Gastro-esophageal reflux disease without BiteJose Antonio diaz PA esophagitis 11/29/2018 N40.1 Benign prostatic hyperplasia with lower urinary Jose Antonio Younger PA tract sympto 11/29/2018 J30.9 Allergic rhinitis, unspecified Jose Antonio Younger PA 11/29/2018 G47.33 Obstructive sleep apnea (adult) (pediatric) Jose Antonio Younger PA 11/29/2018 M15.0 Primary generalized (osteo)arthritis Jose Antonio Younger PA 11/29/2018 R00.2 Palpitations Jose Antonio Younger PA 11/29/2018 Z13.89 Encounter for screening for other disorder Jose Antonio Younger PA 11/29/2018 Z12.11 Encounter for screening for malignant neoplasm of Jose Antonio Younger PA colon 11/29/2018 E66.9 Obesity, unspecified Jose Antonio Younger PA 11/29/2018 Z68.34 Body mass index (BMI) 34.0-34.9, adult Jose Antonio Younger PA 11/29/2018 Z00.01 Encounter for general adult medical examination [facility] with abnormal findings 09/27/2018 M54.12 Radiculopathy, cervical region BiteJose Antonio diaz PA 09/27/2018 M54.2 Cervicalgia Jose Antonio Younger PA 09/27/2018 E66.9 Obesity, unspecified Jose Antonio Younger PA 09/27/2018 I10 Essential (primary) hypertension Jose Antonio Younger PA 09/27/2018 R60.9 Edema, unspecified Jose Antonio Younger PA 09/27/2018 Z68.35 Body mass index (BMI) 35.0-35.9, adult Jose Antonio Younger PA 09/13/2018 M54.2 Cervicalgia Jose Antonio Younger PA 09/13/2018 E66.9 Obesity, unspecified BiteJose Antonio diaz PA 09/13/2018 Z68.35 Body mass index (BMI) 35.0-35.9, adult Jose Antonio Younger PA Plan of Treatment Future Appointment(s):02/21/2019 8:30 am - Nurses Schedule Radh[facility] at [facility]02/2019 8:00 am - Jose Antonio Younger PA at [facility]/20/2019 - Jose Antonio Younger PAJ15.9 Unspecified bacterial pneumoniaNew Medication:Cheratussin ac 100-10 mg/5ML - 5- 10 milliliters four times a day as needed coughAzithromycin 500 mg - 1 by mouth every dayComments:treat with abx and inhaler Symbicort sample. Rx cough med for sleep.E66.9 Obesity, oakuaojjqysR28.34 Body mass index (BMI) 34.0-34.9, pwszxC81.9 Acute pharyngitis, unspecified Functional Status Description No Information Available Mental Status Description No Information Available Referrals Refer to Dr Reason for Referral Status Appt Date Benjamin Meade MD Severe Cervical Foraminal stenosis multiple Scheduled levels R>L 8/2-PER JADE PT IS SCHEDULED AND AWARE-[facility] [address] [place] [address] [phone]
[2019-03-16 10:51] VITALS: BP 132/74
--- NOTE | 2019-03-16 11:44 | UC ---
Respiratory Complaint HPI - HPI Summary HPI Summary: was treated for bronchitis with Z-kelsi 34- weeks ago and started feeling better. over past 3-4 days, he has developed nasal congestion and cough. cough starts in night when lies flat, better if sleeps in chair, denies SOB/CP or dyspnea with exertion - History of Current Complaint Chief Complaint: UCGeneralIllness Stated Complaint: COUGH Time Seen by Provider: 03/16/19 11:10 Hx Obtained From: Patient Onset/Duration: Gradual Onset Timing: Intermittent Episodes Pain Intensity: 0 Aggravating Factors: Recumbent Position Alleviating Factors: Nothing Associated Signs And Symptoms: Positive: Nasal Congestion. Negative: Fever, Chills, Dizziness, Sinus Discomfort - Allergies/Home Medications Allergies/Adverse Reactions: Allergies Allergy/AdvReac Type Severity Reaction Status Date / Time cefaclor [From [facility]] Allergy Severe Shortness Verified 03/16/19 10:41 of Breath Home Medications: Home Medications Ferrous Gluconate [Iron] 325 mg PO DAILY 03/16/19 [History Confirmed 03/16/19] Fluticasone Propionate [[place] Respiclick] 55 mcg IN DAILY 03/16/19 [History Confirmed 03/16/19] Levothyroxine TAB* [Synthroid TAB*] 50 mcg PO DAILY 03/16/19 [History Confirmed 03/16/19] Spironolactone/HCTZ 25-25 MG* [Aldactazide 25-25*] 1 tab PO DAILY 03/16/19 [ History Confirmed 03/16/19] metFORMIN* [Glucophage 500 MG TAB *] 500 mg PO DAILY 03/16/19 [History Confirmed 03/16/19] PMH/Surg Hx/FS Hx/Imm Hx Previously Healthy: Yes Endocrine History: Hypothyroidism, Dyslipidemia Cardiovascular History: Hypertension - Surgical History Surgical History: Yes Surgery Procedure, Year, and Place: [address] [facility] OFFICE. 2004 LET ARM BICEP REPAIR [facility]. CATARACTS. SKIN REMOVED - BENIGN. VASECTOMY - Family History Known Family History: Positive: Non-Contributory - Social History Occupation: Retired Lives: With Family Alcohol Use: Occasionally Alcohol Amount: 1 CAN BEER /DAY Substance Use Type: None Smoking Status (MU): Former Smoker Type: Cigarettes, Pipe Amount Used/How Often: CIGARETTS 10 YRS THEN PIPE 5 YRS Length of Time of Smoking/Using Tobacco: 15 YRS Have You Smoked in the Last Year: No When Did the Patient Quit Smoking/Using Tobacco: 1980s Review of Systems All Other Systems Reviewed And Are Negative: Yes Constitutional: Positive: Negative Skin: Positive: Negative. Negative: Rash Eyes: Positive: Negative ENT: Positive: Sinus Congestion. Negative: Sore Throat Respiratory: Positive: Cough Cardiovascular: Positive: Negative Neurological: Positive: Negative Psychological: Positive: Negative Is Patient Immunocompromised?: No Physical Exam Triage Information Reviewed: Yes Appearance: Well-Appearing, No Pain Distress, Well-Nourished Vital Signs: Initial Vital Signs Temp 97.5 F 03/16/19 10:46 Pulse 76 03/16/19 10:46 Resp 18 03/16/19 10:46 BP 132/74 03/16/19 10:46 Pulse Ox 97 03/16/19 10:46 Vital Signs Reviewed: Yes Eye Exam: Normal Eyes: Positive: Conjunctiva Clear ENT: Positive: Nasal congestion, TMs normal, Sinus tenderness, Other - large amount thick clear PND. Negative: Pharyngeal erythema Neck exam: Normal Neck: Positive: Supple Respiratory Exam: Normal Respiratory: Positive: Lungs clear, Other: - no cough on exam Cardiovascular Exam: Normal Cardiovascular: Positive: RRR Musculoskeletal Exam: Normal Neurological Exam: Normal Psychological Exam: Normal Skin Exam: Normal Respiratory Course/Dx - Differential Dx/Diagnosis Differential Diagnosis/HQI/PQRI: Bronchitis, Influenza, Lower Resp Infection, Sinusitis Provider Diagnosis: Sinusitis Discharge ED - Sign-Out/Discharge Documenting (check all that apply): Patient Departure All imaging exams completed and their final reports reviewed: No Studies - Discharge Plan Condition: Good Disposition: HOME Prescriptions: Amoxicillin/Clavulanate TAB* [Augmentin TAB 500 mg*] 500 mg PO BID #20 tab Patient Education Materials: Sinusitis (ED) Referrals: Kimberlee Hernandez MD [Primary Care Provider] - 2 Days (if you are not improving) Additional Instructions: drink plenty of fluids and rest start antibiotic and take as prescribed try over the counter NyQuil/DayQuil for symptom relief for next 2-3 days return if you symptoms worsen at any time - Billing Disposition and Condition Condition: GOOD Disposition: Home - Attestation Statements Provider Attestation: I was available for consult. This patient was seen by the [facility]. The patient was not presented to, seen by, or examined by me. -Alfonso
== END 2019-03-16 11:57 | disposition home or self-care (01) ==
LOC: UCEAST 10:26
DX: J32.9 Chronic sinusitis, unspecified (principal); E03.9 Hypothyroidism, unspecified; I10 Essential (primary) hypertension; Z79.890 Hormone replacement therapy; Z88.1 Allergy status to other antibiotic agents; Z87.891 Personal history of nicotine dependence
CPT/HCPCS: 99212; G0463

== ENCOUNTER 2024-02-19 14:19 | Inpatient (IN) ==
[2024-02-19] MEDS: Iodixanol 320 (CONTRAST) 100 ML SDV IV ONE (14:38)
[2024-02-19 15:06] LABS: ABS Basophils 0.1 10^3/uL (0.0-0.1); ABS Eosinophils 0.3 10^3/uL (0.0-0.5); ABS Lymphocytes 1.5 10^3/uL (1.0-4.8); ABS Monocytes 0.6 10^3/uL (0.0-1.1); ABS Neutrophils 4.7 10^3/uL (1.5-7.6); ABS Nucleated RBC 0.01 10^3/ul; Eosinophil % 4.1 %; Hematocrit 51.3 % (38-53); Hemoglobin 17.6 g/dL (13.2-16.3); Lymphocyte % 20.7 %; Mean Corpuscular Hemoglobin 33.8 pg (27-33); Mean Corpuscular Hgb Conc 34.3 g/dL (31-36); Mean Corpuscular Volume 98.5 fL (80-97); Mean Platelet Volume 8.2 fL (7.5-11.2); Nucleated Red Blood Cells % 0.2 %/100WBC (0.0-0.8); Platelet Count 246 10^3/uL (150-450); Red Blood Count 5.21 10^6/uL (4.06-5.63); Red Cell Distribution Width 13.7 % (12-17); White Blood Count 7.2 10^3/uL (3.6-10.2)
[2024-02-19 15:16] LABS: Activated Partial Thrombo Time 29.2 seconds (26.0-38.0); INR 1.01 (0.85-1.14)
[2024-02-19 15:48] LABS: ALT 24 U/L (7-52); Albumin 4.5 g/dL (3.2-5.2); Albumin/Globulin Ratio 1.9 (1-3); Alkaline Phosphatase 78 U/L (35-149); Anion Gap 9 mmol/L (2-16); Blood Urea Nitrogen 18 mg/dL (6-24); CO2 Carbon Dioxide 32 mmol/L (22-32); Calcium 9.8 mg/dL (8.6-10.3); Chloride 96 mmol/L (101-111); Cholesterol 149 mg/dL; Creatinine, Serum 1.08 mg/dL (0.67-1.17); Globulin 2.4 g/dL (2-4); Glucose 168 mg/dL (70-100); HDL Cholesterol 34.2 mg/dL; Sodium 137 mmol/L (135-145); Total Bilirubin 0.6 mg/dL (0.2-1.0); Total Protein 6.9 g/dL (6.4-8.9); Triglycerides 505 mg/dL; eGFR CKD-EPI 71.1 (>60)
[2024-02-19 16:12] LABS: LDL Cholesterol Direct 75 mg/dL
[2024-02-19 22:50] LABS: Direct Bilirubin Redraw 0.1 mg/dL (0.1-0.5); Potassium Redraw 3.6 mmol/L (3.5-5.0)
[2024-02-20] MEDS ORDERED: Sulfur Hexaflouride MICROSPHR 25 MG VIAL IV PRN (01:18)
[2024-02-20] MEDS ORDERED: Dextrose 50% Syringe 50 ml 25 GM/50 ML SYRINGE IV PUSH PRN (01:45)
[2024-02-20 04:48] LABS: Urine Appearance Clear; Urine Bilirubin Negative (Negative); Urine Blood Negative (Negative); Urine Color Yellow; Urine Glucose 4+ (>=1000 mg/dL) (Negative); Urine Ketones Negative (Negative); Urine Nitrite Negative (Negative); Urine Protein Negative (Negative); Urine Specific Gravity 1.046 (1.002-1.030); Urine Urobilinogen Negative (Negative); Urine pH 5.5 (5.0-8.0)
[2024-02-20] MEDS: Enoxaparin 40 MG/0.4 ML SYR SUBCUT SCH (11:10)
[2024-02-20] MEDS: CMCS: DAPAGLIFLOZIN 10 MG TAB (NF) PO SCH (11:14)
[2024-02-20] MEDS: Spironolactone/HCTZ 25-25 mg PO SCH (11:15)
[2024-02-20] MEDS: Iodixanol 320 (CONTRAST) 100 ML SDV IV ONE (13:49)
[2024-02-20] MEDS: SEMAGLUTIDE 7 MG PO SCH (17:03)
[2024-02-21 08:10] LABS: ABS Eosinophils 0.3 10^3/uL (0.0-0.5); ABS Lymphocytes 1.1 10^3/uL (1.0-4.8); ABS Monocytes 0.7 10^3/uL (0.0-1.1); ABS Neutrophils 4.9 10^3/uL (1.5-7.6); Eosinophil % 4.8 %; Hematocrit 49.3 % (38-53); Hemoglobin 17.3 g/dL (13.2-16.3); Lymphocyte % 15.5 %; Mean Corpuscular Hemoglobin 34.2 pg (27-33); Mean Corpuscular Hgb Conc 35.1 g/dL (31-36); Mean Corpuscular Volume 97.5 fL (80-97); Platelet Count 218 10^3/uL (150-450); Red Blood Count 5.06 10^6/uL (4.06-5.63); Red Cell Distribution Width 13.6 % (12-17); White Blood Count 7.1 10^3/uL (3.6-10.2)
[2024-02-21 08:29] LABS: Albumin 4.1 g/dL (3.2-5.2); Albumin/Globulin Ratio 1.8 (1-3); Calcium 9.4 mg/dL (8.6-10.3); Creatinine, Serum 0.97 mg/dL (0.67-1.17); Globulin 2.3 g/dL (2-4); Magnesium 1.9 mg/dL (1.9-2.7); Total Bilirubin 0.9 mg/dL (0.2-1.0); Total Protein 6.4 g/dL (6.4-8.9); eGFR CKD-EPI 80.9 (>60)
[2024-02-21 13:30] VITALS: BP 124/71
== END 2024-02-21 15:30 | disposition home or self-care (01) | DRG 66 ==
LOC: ED 14:19 → EDHOLD 14:19 → SUATTDRO 22:52 → MED 02-20 08:49
PROVIDERS: ADMIT Internal Medicine; ATTEND Student in an Organized Health Care Education/Training Program